=== PATIENT | male | born 1955 | race Caucasian/White ===

== ENCOUNTER 2016-06-28 23:24 | Emergency (ER) | payer MEDICARE, OTHER | END 2016-06-29 01:50 | disposition home or self-care (01) | LOC: FER 23:24 | DX: S29.012A Strain of muscle and tendon of back wall of thorax, initial encounter (principal); I12.0 Hypertensive chronic kidney disease with stage 5 chronic kidney disease or end stage renal disease; N18.6 End stage renal disease; K21.9 Gastro-esophageal reflux disease without esophagitis; Z79.899 Other long term (current) drug therapy; Z88.1 Allergy status to other antibiotic agents; Z88.6 Allergy status to analgesic agent; Z88.5 Allergy status to narcotic agent; Z88.0 Allergy status to penicillin; Z99.2 Dependence on renal dialysis; Z94.0 Kidney transplant status; W01.0XXA Fall on same level from slipping, tripping and stumbling without subsequent striking against object, initial encounter; Y92.009 Unspecified place in unspecified non-institutional (private) residence as the place of occurrence of the external cause | CPT/HCPCS: 72072; 72110; 99283 ==

== ENCOUNTER 2016-07-15 23:00 | Emergency (ER) | payer MEDICARE, OTHER | END 2016-07-16 01:37 | disposition home or self-care (01) | LOC: FER 23:00 | DX: S29.012A Strain of muscle and tendon of back wall of thorax, initial encounter (principal); N28.9 Disorder of kidney and ureter, unspecified; Z88.0 Allergy status to penicillin; Z88.1 Allergy status to other antibiotic agents; Z88.5 Allergy status to narcotic agent; Z88.6 Allergy status to analgesic agent; Z79.899 Other long term (current) drug therapy; Z94.0 Kidney transplant status; W22.03XA Walked into furniture, initial encounter; Y92.009 Unspecified place in unspecified non-institutional (private) residence as the place of occurrence of the external cause | CPT/HCPCS: 71020; 71100; 99283 ==

== ENCOUNTER 2016-09-25 22:01 | Emergency (ER) | payer MEDICARE, OTHER ==
[2016-09-25 23:59] LABS: BASOPHIL 0.2 % (0-2); EOSINOPHIL 1.6 % (0-5); HCT 44.3 % (42.0-52.0); HGB 15.7 g/dl (13.2-18.0); LYMPHOCYTE 20.6 % (15-48); MCH 29.2 pg (25.0-31.0); MCHC 35.4 g/dL (32.0-36.0); MCV 82.5 fL (78.0-100.0); MONOCYTE 8.7 % (0-12); MPV 8.6 fL (6.0-9.5); NEUTROPHIL 68.9 % (41-80); PLT 207 K/uL (150-400); RBC 5.37 M/uL (4.70-6.00); RDW 13.9 % (11.5-14.0); WBC 5.5 K/uL (4.0-10.5)
[2016-09-26 00:14] LABS: ALBUMIN 4.3 g/dL (3.4-4.8); BILIRUBIN - TOTAL 0.5 mg/dL (0.1-1.0); GLOBULIN (CALCULATION) 2.4 g/dL (2.2-4.2); POTASSIUM 4.6 mmol/L (3.5-5.1); TOTAL PROTEIN 6.7 g/dL (6.4-8.3)
== END 2016-09-26 01:18 | disposition home or self-care (01) ==
LOC: FER 22:01
PROVIDERS: Emergency Medicine Emergency Medical Services
DX: S20.219A Contusion of unspecified front wall of thorax, initial encounter (principal); S30.1XXA Contusion of abdominal wall, initial encounter; M54.9 Dorsalgia, unspecified; Z88.0 Allergy status to penicillin; Z88.1 Allergy status to other antibiotic agents; Z88.5 Allergy status to narcotic agent; Z88.6 Allergy status to analgesic agent; Z94.0 Kidney transplant status; W01.198A Fall on same level from slipping, tripping and stumbling with subsequent striking against other object, initial encounter; Y92.009 Unspecified place in unspecified non-institutional (private) residence as the place of occurrence of the external cause
CPT/HCPCS: 36415; 71250; 80053; 82150; 83690; 85025

== ENCOUNTER 2021-03-02 15:20 | Emergency (ER) | payer MEDICARE ==
[~2021-03-02 15:20] MED LIST: CELLCEPT250 MG PO; CERTAGEN1 EACH PO; COZAAR50 MG PO; FLEXERIL10 MG PO; LOVAZA1 GM PO; PROGRAF0.5 MG PO; VITAMIN B-121000 MC1 PO; ZANTAC150 MG PO
[2021-03-02 16:39] LABS: BASOPHIL 0.3 % (0-2); EOSINOPHIL 0.1 % (0-7); HCT 34.5 % (42.0-52.0); HGB 10.6 g/dl (13.2-18.0); LYMPHOCYTE 5.3 % (15-48); MCH 22.6 pg (25.0-31.0); MCHC 30.7 g/dL (32.0-36.0); MCV 73.6 fL (78.0-100.0); MONOCYTE 7.9 % (0-12); MPV 9.2 fL (6.0-9.5); NEUTROPHIL 85.9 % (41-80); NRBC 0; PLT 295 K/uL (150-400); RBC 4.69 M/uL (4.70-6.00); RDW 15.5 % (11.5-14.0)
[2021-03-02 17:11] LABS: ALBUMIN 2.5 g/dL (3.4-5.0); BILIRUBIN - TOTAL 0.6 mg/dL (0.2-1.0); BUN/CREAT RATIO (CALC) 20.4 RATIO; CREATININE 1.37 mg/dL (0.67-1.17); GLOBULIN (CALCULATION) 4.8 g/dL; MAGNESIUM 1.6 mg/dL (1.8-2.4); POTASSIUM 3.7 mmol/L (3.5-5.1); TOTAL PROTEIN 7.3 g/dL (6.4-8.2)
[2021-03-02 18:53] LABS: BILIRUBIN 2+ mg/dL (NEGATIVE); BLOOD 3+ Ery/uL (NEGATIVE); COLOR YELLOW (YELLOW); GLUCOSE (U) NORMAL (NORMAL); LEUKOCYTES NEGATIVE Leu/uL (NEGATIVE); NITRITE POSITIVE (NEGATIVE); PROTEIN 3+ mg/dL (NEGATIVE); SPECIFIC GRAVITY >=1.030 (1.001-1.030); UROBILINOGEN 0.2 mg/dL (0.2-1.0); pH 5.5 (5.0-9.0)
[2021-03-02 18:55] LABS: CLARITY CLOUDY (CLEAR)
[2021-03-02 18:59] LABS: AMORPHOUS URATES CRYSTALS MODERATE; BACTERIA 4+; SQUAMOUS EPITHELIAL CELLS RARE; URINARY RBC 20-50
[2021-03-02 19:00] LABS: GRANULAR CASTS MODERATE
[2021-03-02] MEDS ORDERED: CEFDINIR300 MG PO (19:40)
== END 2021-03-02 21:15 | disposition other institution (70) ==
LOC: FER 15:20
PROVIDERS: Emergency Medicine
DX: N13.6 Pyonephrosis (principal); I10 Essential (primary) hypertension; Z87.891 Personal history of nicotine dependence; Z88.0 Allergy status to penicillin; Z88.6 Allergy status to analgesic agent; Z88.5 Allergy status to narcotic agent; Z88.1 Allergy status to other antibiotic agents
CPT/HCPCS: 36415; 80053; 81001; 82140; 83605; 83690; 83735; 84145; 85025; 87040; 87088; J2185